=== PATIENT | male | born 1980 | race Caucasian/White ===

== ENCOUNTER → 2018-01-24 | Outpatient (CLI) | payer OTHER | END | disposition home or self-care (01) | LOC: LAB SHORT 19:22 → LAB EV 19:22 | DX: J02.9 Acute pharyngitis, unspecified (principal) | CPT/HCPCS: 87070 ==

== ENCOUNTER → 2019-01-12 | Outpatient (CLI) | payer OTHER | END | disposition home or self-care (01) | LOC: LAB 14:55 → LAB SHORT 14:55 | DX: J02.9 Acute pharyngitis, unspecified (principal) | CPT/HCPCS: 87081 ==

== ENCOUNTER 2019-08-21 20:02 | Emergency (ER) | payer OTHER ==
[~2019-08-21] VITALS: Ht 175.3 cm; Wt 75.3 kg
[2019-08-21] MEDS ORDERED: AZIT250 PO (22:05)
[2019-08-21] MEDS ORDERED: ERYT1OIN LEFTEYE (22:16)
[2019-08-21] MEDS ORDERED: CEPH500 PO (22:16)
== END 2019-08-21 23:00 | disposition home or self-care (01) ==
LOC: ER 20:02
DX: L03.213 Periorbital cellulitis (principal)
CPT/HCPCS: 99282